=== PATIENT | female | born 1985 | race African-American/Black ===

== ENCOUNTER 2020-07-24 19:16 | Observation (INO) | payer MEDICAID, OTHER ==
[~2020-07-24] VITALS: Ht 165.1 cm; Wt 88.5 kg
[2020-07-24] MEDS ORDERED: FERR1TAB36 PO (21:42)
[2020-07-24] MEDS ORDERED: PREN-96 PO (21:42)
== END 2020-07-24 21:52 | disposition home or self-care (01) ==
LOC: LDRP 19:16
PROVIDERS: ADMIT Obstetrics & Gynecology; ATTEND Obstetrics & Gynecology
DX: O36.8130 Decreased fetal movements, third trimester, not applicable or unspecified (principal); Z3A.29 29 weeks gestation of pregnancy
CPT/HCPCS: 59025; 76818; 81002; G0378